=== PATIENT | female | born 1960 | race Caucasian/White ===

== ENCOUNTER → 2017-09-25 | Outpatient (CLI) | payer MEDICARE ==
[~2017-09-25] MED LIST: ACET325; ALBU90OI INH; ATOR10 PO; ATORVASTATIN CA10 MG PO; CALCIUM PO; CARV3.125; CEFP200 PO; CHOL10002 PO; CIPR500 PO; DOCU100 PO; ERGO400 PO; FURO40 PO; GABA400 PO; GABA800 PO; HYDMOR2 PO; LIDOCAINE HCL30 ML TOP; LIDOCAINE-PRIL1 EACH TOP; LISI5 PO; MOMENI; NITR.6SL SL; OXYACE5T PO; OXYC5 PO; POTCHL10ER PO; PRED20 PO; PROM25 PO; Prilosec20 MG; Silvadene20 GM TOP; VISCOUS LIDOCAINE PO; WARF1 PO; WARF2.5 PO; WARF5; WARF5 PO; WARF7.5 PO; [UNRECOGNIZED DRUG - REMARK]
== END ==
LOC: LAB 11:58 → LAB SHORT 11:58 → LAB FUT 09-24 13:30
PROVIDERS: Internal Medicine Nephrology
DX: N18.3 Chronic kidney disease, stage 3 (moderate) (principal); D63.1 Anemia in chronic kidney disease; E55.9 Vitamin D deficiency, unspecified; E79.0 Hyperuricemia without signs of inflammatory arthritis and tophaceous disease; R76.9 Abnormal immunological finding in serum, unspecified; R94.5 Abnormal results of liver function studies
CPT/HCPCS: 84166; 86335

== ENCOUNTER 2017-12-31 07:56 | Day surgery (SDC) | payer MEDICARE ==
[~2017-12-31] VITALS: Ht 165.1 cm; Wt 95.2 kg
[~2017-12-31 07:56] MED LIST changes: -ATOR10 PO; -ATORVASTATIN CA10 MG PO; -CALCIUM PO; -CHOL10002 PO; -ERGO400 PO; -FURO40 PO; -GABA400 PO; -GABA800 PO; -LIDOCAINE HCL30 ML TOP; -LIDOCAINE-PRIL1 EACH TOP; +LISI5; -LISI5 PO; -OXYC5 PO; -POTCHL10ER PO; -Silvadene20 GM TOP; -VISCOUS LIDOCAINE PO; -WARF2.5 PO; -WARF5 PO
[2017-12-31] MEDS ORDERED: GABA400 PO (08:24)
[2017-12-31] MEDS ORDERED: ATOR10 PO (08:24)
[2017-12-31] MEDS ORDERED: POTCHL10ER PO (08:25)
[2017-12-31] MEDS ORDERED: FURO40 PO (08:25)
== END 2017-12-31 10:07 | disposition home or self-care (01) ==
LOC: ORSCSDS 07:56
PROVIDERS: Surgery
PROC: 0DBP8ZX Excision of Rectum, Via Natural or Artificial Opening Endoscopic, Diagnostic (ICD-10-PCS; principal; 2017-12-31 09:00)
DX: Z12.11 Encounter for screening for malignant neoplasm of colon (principal); C21.0 Malignant neoplasm of anus, unspecified; K64.8 Other hemorrhoids; J44.9 Chronic obstructive pulmonary disease, unspecified; Z85.71 Personal history of Hodgkin lymphoma; Z79.01 Long term (current) use of anticoagulants; Z79.899 Other long term (current) drug therapy; E66.01 Morbid (severe) obesity due to excess calories; Z68.36 Body mass index [BMI] 36.0-36.9, adult
CPT/HCPCS: 88305; J7120

== ENCOUNTER 2018-01-16 06:10 | Day surgery (SDC) | payer MEDICARE ==
[~2018-01-16] VITALS: Ht 165.1 cm; Wt 95.7 kg
[~2018-01-16 06:10] MED LIST changes: +ATOR10 PO; +FURO40 PO; +GABA400 PO; +POTCHL10ER PO
== END 2018-01-16 08:35 | disposition home or self-care (01) ==
LOC: ORSCSDS 06:10
PROVIDERS: Orthopaedic Surgery
PROC: 01N50ZZ Release Median Nerve, Open Approach (ICD-10-PCS; principal; 2018-01-16 07:30)
DX: G56.01 Carpal tunnel syndrome, right upper limb (principal); N18.3 Chronic kidney disease, stage 3 (moderate); J44.9 Chronic obstructive pulmonary disease, unspecified; Z85.71 Personal history of Hodgkin lymphoma; E66.9 Obesity, unspecified; Z68.37 Body mass index [BMI] 37.0-37.9, adult; Z79.01 Long term (current) use of anticoagulants; Z79.899 Other long term (current) drug therapy
CPT/HCPCS: J2250

== ENCOUNTER 2018-02-03 07:15 | Day surgery (SDC) | payer MEDICARE ==
[~2018-02-03 07:15] MED LIST changes: +ERGO400 PO; -LISI5; +LISI5 PO
[2018-02-03] MEDS ORDERED: CALCIUM PO (13:40)
[2018-02-09] MEDS ORDERED: WARF5 PO (08:02)
[2018-02-09] MEDS ORDERED: WARF2.5 PO (08:03)
== END 2018-02-03 13:46 | disposition home or self-care (01) ==
LOC: ATC 07:15
DX: C21.0 Malignant neoplasm of anus, unspecified (principal); Z85.71 Personal history of Hodgkin lymphoma; Z86.711 Personal history of pulmonary embolism; Z79.01 Long term (current) use of anticoagulants; E66.9 Obesity, unspecified
CPT/HCPCS: 96372; J1650

== ENCOUNTER 2018-02-04 00:26 | Day surgery (SDC) | payer MEDICARE ==
[~2018-02-04 00:26] MED LIST changes: +CALCIUM PO
[2018-02-09] MEDS ORDERED: WARF5 PO (08:02)
[2018-02-09] MEDS ORDERED: WARF2.5 PO (08:03)
== END 2018-02-04 13:33 | disposition home or self-care (01) ==
LOC: ATC 00:26
DX: C21.0 Malignant neoplasm of anus, unspecified (principal); Z85.71 Personal history of Hodgkin lymphoma
CPT/HCPCS: 96372; J1650

== ENCOUNTER 2018-02-05 00:26 | Day surgery (SDC) | payer MEDICARE ==
[2018-02-09] MEDS ORDERED: WARF5 PO (08:02)
[2018-02-09] MEDS ORDERED: WARF2.5 PO (08:03)
== END 2018-02-05 13:56 | disposition home or self-care (01) ==
LOC: ATC 00:26
DX: C21.0 Malignant neoplasm of anus, unspecified (principal)
CPT/HCPCS: 96372; J1650

== ENCOUNTER 2018-02-07 08:59 | Day surgery (SDC) | payer MEDICARE ==
[2018-02-09] MEDS ORDERED: WARF5 PO (08:02)
[2018-02-09] MEDS ORDERED: WARF2.5 PO (08:03)
== END 2018-02-07 10:17 | disposition home or self-care (01) ==
LOC: ATC 08:59
DX: C21.0 Malignant neoplasm of anus, unspecified (principal)
CPT/HCPCS: 96372; J1650

== ENCOUNTER 2018-02-08 00:03 | Day surgery (SDC) | payer MEDICARE ==
[2018-02-09] MEDS ORDERED: WARF5 PO (08:02)
[2018-02-09] MEDS ORDERED: WARF2.5 PO (08:03)
== END 2018-02-08 10:15 | disposition home or self-care (01) ==
LOC: ATC 00:03
DX: C21.0 Malignant neoplasm of anus, unspecified (principal); Z85.71 Personal history of Hodgkin lymphoma; E66.9 Obesity, unspecified; Z86.711 Personal history of pulmonary embolism
CPT/HCPCS: 36416; 85610; 96372; J1650

== ENCOUNTER 2018-02-09 09:55 | Day surgery (SDC) | payer MEDICARE ==
[~2018-02-09 09:55] MED LIST changes: +WARF2.5 PO; +WARF5 PO
[2018-02-10] MEDS ORDERED: OXYC5 PO (10:13)
== END 2018-02-09 10:10 | disposition home or self-care (01) ==
LOC: ATC 09:55
DX: C21.0 Malignant neoplasm of anus, unspecified (principal); Z85.71 Personal history of Hodgkin lymphoma; Z86.711 Personal history of pulmonary embolism
CPT/HCPCS: 36416; 85610; 96372; J1650

== ENCOUNTER 2018-02-10 00:37 | Day surgery (SDC) | payer MEDICARE ==
[2018-02-10] MEDS ORDERED: OXYC5 PO (10:13)
== END 2018-02-10 10:10 | disposition home or self-care (01) ==
LOC: ATC 00:37
DX: C21.0 Malignant neoplasm of anus, unspecified (principal); Z85.71 Personal history of Hodgkin lymphoma
CPT/HCPCS: 36416; 85610; 96372; J1650

== ENCOUNTER 2018-02-11 00:47 | Day surgery (SDC) | payer MEDICARE ==
[~2018-02-11 00:47] MED LIST changes: +OXYC5 PO
== END 2018-02-11 10:18 | disposition home or self-care (01) ==
LOC: ATC 00:47
DX: C21.0 Malignant neoplasm of anus, unspecified (principal); Z85.71 Personal history of Hodgkin lymphoma
CPT/HCPCS: 36416; 85610; 96372; J1650

== ENCOUNTER 2018-02-12 00:54 | Day surgery (SDC) | payer MEDICARE | END 2018-02-12 10:39 | disposition home or self-care (01) | LOC: ATC 00:54 | DX: C21.0 Malignant neoplasm of anus, unspecified (principal); Z85.71 Personal history of Hodgkin lymphoma | CPT/HCPCS: 36416; 85610; 96372; J1650 ==

== ENCOUNTER 2018-02-13 01:03 | Day surgery (SDC) | payer MEDICARE | END 2018-02-13 10:15 | disposition home or self-care (01) | LOC: ATC 01:03 | DX: C21.1 Malignant neoplasm of anal canal (principal); Z85.71 Personal history of Hodgkin lymphoma | CPT/HCPCS: 36416; 85610; 96372; J1650 ==

== ENCOUNTER 2018-02-14 00:05 | Day surgery (SDC) | payer MEDICARE | END 2018-02-14 10:45 | disposition home or self-care (01) | LOC: ATC 00:05 | DX: C21.1 Malignant neoplasm of anal canal (principal); Z86.711 Personal history of pulmonary embolism; Z79.01 Long term (current) use of anticoagulants | CPT/HCPCS: 36416; 85610; 96372; J1650 ==

== ENCOUNTER 2018-02-15 09:56 | Day surgery (SDC) | payer MEDICARE | END 2018-02-15 10:09 | disposition home or self-care (01) | LOC: ATC 09:56 | DX: C21.1 Malignant neoplasm of anal canal (principal); Z85.71 Personal history of Hodgkin lymphoma | CPT/HCPCS: 36416; 85610; 99211; J1650 ==

== ENCOUNTER 2018-02-17 00:29 | Day surgery (SDC) | payer MEDICARE | END 2018-02-17 23:18 | disposition home or self-care (01) | LOC: ATC 00:29 | DX: C21.1 Malignant neoplasm of anal canal (principal); Z85.71 Personal history of Hodgkin lymphoma; Z86.711 Personal history of pulmonary embolism; Z79.01 Long term (current) use of anticoagulants ==

== ENCOUNTER 2018-03-07 08:00 | Day surgery (SDC) | payer MEDICARE ==
[~2018-03-07] VITALS: Ht 162.6 cm; Wt 95.7 kg
[~2018-03-07 08:00] MED LIST changes: +GABA800 PO
== END 2018-03-07 12:30 | disposition home or self-care (01) ==
LOC: ORSCMMR 08:00 → ORD 09:45 → ORSCMMR 12:30
PROVIDERS: Surgery
PROC: B5181ZA Fluoroscopy of Superior Vena Cava using Low Osmolar Contrast, Guidance (ICD-10-PCS; principal; 2018-03-07 09:45)
PROC: 02HV33Z Insertion of Infusion Device into Superior Vena Cava, Percutaneous Approach (ICD-10-PCS; principal; 2018-03-07 09:45)
DX: C44.520 Squamous cell carcinoma of anal skin (principal); I10 Essential (primary) hypertension; E66.01 Morbid (severe) obesity due to excess calories; Z68.36 Body mass index [BMI] 36.0-36.9, adult; Z79.01 Long term (current) use of anticoagulants; Z79.899 Other long term (current) drug therapy
CPT/HCPCS: 77001; C1788; J0690; J1642; J2001; J2250; J3010; J7120

== ENCOUNTER 2018-04-19 00:05 | Day surgery (SDC) | payer MEDICARE | END 2018-04-19 11:25 | disposition home or self-care (01) | LOC: ATC 00:05 | DX: C44.520 Squamous cell carcinoma of anal skin (principal); C81.90 Hodgkin lymphoma, unspecified, unspecified site; Z79.01 Long term (current) use of anticoagulants | CPT/HCPCS: J1642; J7030 ==

== ENCOUNTER 2018-04-26 00:40 | Day surgery (SDC) | payer MEDICARE | END 2018-04-26 12:02 | disposition home or self-care (01) | LOC: ATC 00:40 | DX: C21.8 Malignant neoplasm of overlapping sites of rectum, anus and anal canal (principal); Z45.2 Encounter for adjustment and management of vascular access device; C81.99 Hodgkin lymphoma, unspecified, extranodal and solid organ sites; D70.1 Agranulocytosis secondary to cancer chemotherapy; T45.1X5A Adverse effect of antineoplastic and immunosuppressive drugs, initial encounter; K12.1 Other forms of stomatitis; Z79.899 Other long term (current) drug therapy | CPT/HCPCS: 96360; J1642; J7030 ==

== ENCOUNTER 2018-04-27 09:49 | Day surgery (SDC) | payer MEDICARE | END 2018-04-27 11:12 | disposition home or self-care (01) | LOC: ATC 09:49 | DX: C81.99 Hodgkin lymphoma, unspecified, extranodal and solid organ sites (principal); C21.8 Malignant neoplasm of overlapping sites of rectum, anus and anal canal; D70.1 Agranulocytosis secondary to cancer chemotherapy; T45.1X5A Adverse effect of antineoplastic and immunosuppressive drugs, initial encounter; K12.1 Other forms of stomatitis; Z79.899 Other long term (current) drug therapy | CPT/HCPCS: 96360; J1642; J7030 ==

== ENCOUNTER 2018-05-01 13:54 | Emergency (ER) | payer MEDICARE ==
[~2018-05-01] VITALS: Ht 165.1 cm; Wt 89.8 kg
== END 2018-05-01 15:02 | disposition home or self-care (01) ==
LOC: ER 13:54
DX: R79.1 Abnormal coagulation profile (principal); I10 Essential (primary) hypertension; Z91.048 Other nonmedicinal substance allergy status; Z88.5 Allergy status to narcotic agent; Z88.8 Allergy status to other drugs, medicaments and biological substances; Z79.899 Other long term (current) drug therapy; Z79.01 Long term (current) use of anticoagulants
CPT/HCPCS: 99282

== ENCOUNTER 2018-05-03 10:52 | Day surgery (SDC) | payer MEDICARE | END 2018-05-03 12:35 | disposition home or self-care (01) | LOC: ATC 10:52 | DX: C44.520 Squamous cell carcinoma of anal skin (principal); C81.90 Hodgkin lymphoma, unspecified, unspecified site; D70.1 Agranulocytosis secondary to cancer chemotherapy; J44.9 Chronic obstructive pulmonary disease, unspecified; Z79.899 Other long term (current) drug therapy | CPT/HCPCS: 96360; J1642; J7030 ==

== ENCOUNTER 2018-05-04 10:05 | Day surgery (SDC) | payer MEDICARE | END 2018-05-04 11:51 | disposition home or self-care (01) | LOC: ATC 10:05 | DX: C44.520 Squamous cell carcinoma of anal skin (principal); C81.90 Hodgkin lymphoma, unspecified, unspecified site; D70.1 Agranulocytosis secondary to cancer chemotherapy | CPT/HCPCS: 96360; J1642; J7030 ==

== ENCOUNTER 2018-05-06 11:11 | Emergency (ER) | payer MEDICARE ==
[~2018-05-06] VITALS: Ht 165.1 cm; Wt 89.8 kg
[2018-05-06 12:14] LABS: International Normalized Ratio 2.17; Prothrombin Time Results 21.4 Sec (9.7-11.5)
[2018-05-06 12:27] LABS: Albumin/Globulin Ratio 0.9 (0.8-1.8); Bilirubin, Total 0.5 mg/dL (0.1-1.0); Bun/Creatinine Ratio 11.4 (12.0-20.0); Creatinine, Blood 1.4 mg/dL (0.40-1.00); Globulin, Blood 3.2 g/dL (2.2-4.0); Potassium, Blood 3.7 mmol/L (3.5-5.5); Total Protein, Blood 6.2 g/dL (6.4-8.2)
[2018-05-06 12:59] LABS: BASOPHILS ABSOLUTE AUTO 0.01 K/mm3 (0.00-0.23); BASOPHILS PERCENT AUTO 1 % (0-2); Hematocrit 26.5 % (33.0-51.0); LYMPHOCYTES ABSOLUTE AUTO 0.22 K/mm3 (0.84-5.20); LYMPHOCYTES PERCENT AUTO 12 % (21-46); MONOCYTES ABSOLUTE AUTO 0.15 K/mm3 (0.16-1.47); MONOCYTES PERCENT AUTO 8 % (4-13); Mean Corpuscular HGB 33.5 pg (26.0-34.0); RDW Coefficient Variation 14.6 % (11.7-14.2); RDW Standard Deviation 51.4 fL (35.1-46.3); Red Blood Cell Count 2.69 M/mm3 (3.80-5.20); White Blood Cell Count 1.81 K/mm3 (4.00-11.30)
[2018-05-06 13:05] LABS: EOSINOPHILS ABSOLUTE AUTO 0.01 K/mm3 (0.00-0.68); EOSINOPHILS PERCENT AUTO 1 % (0-6); IMMATURE GRAN ABSOLUTE AUTO 0.03 K/mm3 (0.00-0.10); IMMATURE GRAN PERCENT AUTO 2 % (0-1); Mean Corpuscular Volume 99 fL (80-100); NEUTROPHILS ABSOLUTE AUTO 1.39 K/mm3 (1.96-9.15); NEUTROPHILS PERCENT AUTO 77 % (41-73)
[2018-05-06 13:08] LABS: Platelet Count 8 K/mm3 (150-400)
[2018-05-06 13:45] LABS: BAND PERCENT MAN 8 % (0-8); BASOPHILS PERCENT MAN 0 % (0-2); EOSINOPHILS PERCENT MAN 0 % (0-6); LYMPHOCYTES ABSOLUTE MAN 0.07 K/mm3 (0.84-5.20); LYMPHOCYTES PERCENT MAN 4 % (21-46); MONOCYTES PERCENT MAN 6 % (4-13); NEUTROPHILS ABSOLUTE MAN 1.62 K/mm3 (1.96-9.15); SEG NEUTROPHILS PERCENT MAN 82 % (41-73); TOTAL CELLS COUNTED 50
== END 2018-05-06 18:03 | disposition home or self-care (01) ==
LOC: ER 11:11
PROVIDERS: Physician Assistant
DX: T21.25XA Burn of second degree of buttock, initial encounter (principal); T31.0 Burns involving less than 10% of body surface; D61.818 Other pancytopenia; C21.0 Malignant neoplasm of anus, unspecified; Y84.2 Radiological procedure and radiotherapy as the cause of abnormal reaction of the patient, or of later complication, without mention of misadventure at the time of the procedure; Z91.048 Other nonmedicinal substance allergy status; Z88.5 Allergy status to narcotic agent; Z88.8 Allergy status to other drugs, medicaments and biological substances; Z79.899 Other long term (current) drug therapy; Z79.01 Long term (current) use of anticoagulants
CPT/HCPCS: 36415; 36430; 80053; 85025; 85610; 86900; 86901; 99283-25; J7030; P9035

== ENCOUNTER 2018-12-02 09:39 | Day surgery (SDC) | payer MEDICARE ==
[~2018-12-02] VITALS: Ht 165.1 cm; Wt 88.5 kg
[~2018-12-02 09:39] MED LIST changes: +ATORVASTATIN CA10 MG PO; +CHOL10002 PO; +LIDOCAINE HCL30 ML TOP; +LIDOCAINE-PRIL1 EACH TOP; +Silvadene20 GM TOP; +VISCOUS LIDOCAINE PO
[2018-12-02] MEDS ORDERED: Proctosol HC30 GM (10:25)
--- NOTE | 2018-12-02 10:45 | NUR ---
12/02/18 1045 Ara Morgan PT ARRIVES TO [facility] WITH MEDIPORT THAT HAD ACCESS PREPARED AT THE [facility], SITE WAS THEN FLUSHED AND ACCESSED BY [facility].FLL AT 1040.
--- NOTE | 2018-12-02 12:25 | NUR ---
12/02/18 Nichol Wu PT CAME TO [facility] WITH AN ACCESSED [facility]EDURE. AFTER FLEX SIG WAS COMPLETED THE PORT WAS DE-ACCESSED IN STEP DOWN UNIT AFTER BEING FLUSHED WITH 10CC'S NORMAL SALINE AND 300 UNITS OF HEPARIN. SITE WIPED AND BANDAID PLACED ON IT. PT TOLERATED THE PROCEDURE WITHOUT INCIDENT. DE-ACCESSED BY JOSE MARTIN PEREZ.
== END 2018-12-02 12:10 | disposition home or self-care (01) ==
LOC: ORSCSDS 09:39
PROVIDERS: Surgery
PROC: 0DJD8ZZ Inspection of Lower Intestinal Tract, Via Natural or Artificial Opening Endoscopic (ICD-10-PCS; principal; 2018-12-02 10:45)
DX: Z85.048 Personal history of other malignant neoplasm of rectum, rectosigmoid junction, and anus (principal); J44.9 Chronic obstructive pulmonary disease, unspecified; K21.9 Gastro-esophageal reflux disease without esophagitis; E66.9 Obesity, unspecified; Z68.33 Body mass index [BMI] 33.0-33.9, adult; Z79.01 Long term (current) use of anticoagulants; Z79.899 Other long term (current) drug therapy
CPT/HCPCS: J1642; J2704; J7120

== ENCOUNTER 2019-07-10 08:36 | Day surgery (SDC) | payer MEDICARE ==
[~2019-07-10] VITALS: Ht 162.6 cm; Wt 93.1 kg
[~2019-07-10 08:36] MED LIST changes: +Proctosol HC30 GM
== END 2019-07-10 10:15 | disposition home or self-care (01) ==
LOC: ORSCSDS 08:36
PROVIDERS: Surgery
PROC: 0DJD8ZZ Inspection of Lower Intestinal Tract, Via Natural or Artificial Opening Endoscopic (ICD-10-PCS; principal; 2019-07-10 09:45)
DX: K62.5 Hemorrhage of anus and rectum (principal); Z85.048 Personal history of other malignant neoplasm of rectum, rectosigmoid junction, and anus; J44.9 Chronic obstructive pulmonary disease, unspecified; Z79.01 Long term (current) use of anticoagulants; Z79.899 Other long term (current) drug therapy
CPT/HCPCS: J2704; J7120

== ENCOUNTER 2019-11-08 14:30 | Emergency (ER) | payer MEDICARE, OTHER ==
[~2019-11-08] VITALS: Ht 165.1 cm; Wt 90.7 kg
[~2019-11-08 14:30] MED LIST changes: -ATORVASTATIN CA10 MG PO; -AZIT250 PO; -DULCOLAX STOOL100 MG PO; -VITAMIN D325 MCG PO
[2019-11-08] MEDS ORDERED: ATORVASTATIN CA10 MG PO (16:27)
[2019-11-08] MEDS ORDERED: LISI5 PO (16:28)
[2019-11-08] MEDS ORDERED: FURO40 PO (16:29)
[2019-11-08] MEDS ORDERED: WARF5 PO (16:29)
[2019-11-08] MEDS ORDERED: POTCHL10ER PO (16:29)
[2019-11-08] MEDS ORDERED: VITAMIN D325 MCG PO (16:41)
[2019-11-08] MEDS ORDERED: DULCOLAX STOOL100 MG PO (16:41)
[2019-11-08 17:23] LABS: Adenovirus Not Detected (NOT DETECT); Coronavirus 229E Not Detected (NOT DETECT); Coronavirus HKU1 Not Detected (NOT DETECT); Coronavirus NL63 Not Detected (NOT DETECT)
[2019-11-08 17:24] LABS: Bordetella pertussis Not Detected (NOT DETECT); Chlamydophila pneumoniae Not Detected (NOT DETECT); Coronavirus OC43 Not Detected (NOT DETECT); Human Metapneumovirus Not Detected (NOT DETECT); Human Rhinovirus/Enterovirus Not Detected (NOT DETECT); Influenza A/2009-H1 Not Detected (NOT DETECT); Influenza A/H1 Not Detected (NOT DETECT); Influenza A/H3 Not Detected (NOT DETECT); Influenza B Not Detected (NOT DETECT); Mycoplasma pneumoniae Not Detected (NOT DETECT); Parainfluenza Virus 1 Not Detected (NOT DETECT); Parainfluenza Virus 2 Not Detected (NOT DETECT); Parainfluenza Virus 3 Not Detected (NOT DETECT); Parainfluenza Virus 4 Not Detected (NOT DETECT); Respiratory Syncytial Virus Not Detected (NOT DETECT)
[2019-11-08] MEDS ORDERED: AZIT250 PO (17:34)
== END 2019-11-08 17:45 | disposition home or self-care (01) ==
LOC: ER 14:30
PROVIDERS: Emergency Medicine
DX: J20.9 Acute bronchitis, unspecified (principal); K92.2 Gastrointestinal hemorrhage, unspecified; D68.8 Other specified coagulation defects; K21.9 Gastro-esophageal reflux disease without esophagitis; Z85.71 Personal history of Hodgkin lymphoma; Z86.718 Personal history of other venous thrombosis and embolism; Z86.711 Personal history of pulmonary embolism
CPT/HCPCS: 0099U; 71046; 86850; 86900; 86901; 96365; 99284-25; J3430

== ENCOUNTER → 2019-11-08 | Outpatient (CLI) | payer MEDICARE, OTHER ==
[~2019-11-08] MED LIST changes: +AZIT250 PO; -CHOL10002 PO; +DULCOLAX STOOL100 MG PO; +VITAMIN D325 MCG PO
[2019-11-08 12:51] LABS: BASOPHILS ABSOLUTE AUTO 0.02 K/mm3 (0.00-0.23); BASOPHILS PERCENT AUTO 0 % (0-2); EOSINOPHILS ABSOLUTE AUTO 0.24 K/mm3 (0.00-0.68); EOSINOPHILS PERCENT AUTO 3 % (0-6); Hematocrit 37.6 % (33.0-51.0); Hemoglobin 12.3 g/dL (11.5-16.0); IMMATURE GRAN ABSOLUTE AUTO 0.03 K/mm3 (0.00-0.10); IMMATURE GRAN PERCENT AUTO 0 % (0-1); LYMPHOCYTES ABSOLUTE AUTO 1.45 K/mm3 (0.84-5.20); LYMPHOCYTES PERCENT AUTO 17 % (21-46); MONOCYTES ABSOLUTE AUTO 0.53 K/mm3 (0.16-1.47); MONOCYTES PERCENT AUTO 6 % (4-13); Mean Corpuscular HGB 33.5 pg (26.0-34.0); Mean Corpuscular HGB Conc 32.7 g/dL (31.5-36.5); Mean Corpuscular Volume 103 fL (80-100); Mean Platelet Volume 9.5 fL (9.1-12.4); NEUTROPHILS ABSOLUTE AUTO 6.39 K/mm3 (1.96-9.15); NEUTROPHILS PERCENT AUTO 74 % (41-73); NRBC ABSOLUTE 0.02 K/mm3 (0.00-0.02); NRBC Auto 0.2 /100 WBC (0.0-0.2); Platelet Count 263 K/mm3 (150-400); RDW Coefficient Variation 12.9 % (11.7-14.2); RDW Standard Deviation 47.9 fL (35.1-46.3); Red Blood Cell Count 3.67 M/mm3 (3.80-5.20); White Blood Cell Count 8.66 K/mm3 (4.00-11.30)
[2019-11-08 13:00] LABS: Albumin, Blood 3.8 g/dL (3.4-5.0); Albumin/Globulin Ratio 0.9 (0.8-1.8); Bilirubin, Total 0.3 mg/dL (0.1-1.0); Bun/Creatinine Ratio 10.6 (12.0-20.0); Creatinine, Blood 1.7 mg/dL (0.40-1.00); Globulin, Blood 4.2 g/dL (2.2-4.0); Potassium, Blood 4.2 mmol/L (3.5-5.5)
[2019-11-08 13:35] LABS: Prothrombin Time Results 75.9 Sec (9.7-11.5)
[2019-11-08 13:47] LABS: International Normalized Ratio 7.98
== END | disposition home or self-care (01) ==
LOC: LAB SHORT 12:44 → LAB EV 12:44
PROVIDERS: Physician Assistant
DX: Z79.01 Long term (current) use of anticoagulants (principal); Z51.81 Encounter for therapeutic drug level monitoring; R19.7 Diarrhea, unspecified; J02.9 Acute pharyngitis, unspecified
CPT/HCPCS: 80053; 85025; 85610; 85730; 87081

== ENCOUNTER → 2020-08-16 | Outpatient (CLI) | payer MEDICARE, SELFPAY ==
[~2020-08-16] MED LIST changes: +ATORVASTATIN CA10 MG PO; +AZIT250 PO; +DULCOLAX STOOL100 MG PO; +VITAMIN D325 MCG PO
== END | disposition home or self-care (01) ==
LOC: LAB SHORT 16:47
DX: L08.89 Other specified local infections of the skin and subcutaneous tissue (principal)
CPT/HCPCS: 88305

== ENCOUNTER 2020-09-07 10:06 | Day surgery (SDC) | payer MEDICARE ==
[~2020-09-07] VITALS: Ht 162.6 cm; Wt 93.4 kg
--- NOTE | 2020-09-07 13:10 | NUR ---
09/07/20 1310 Lucero Wood S LATE ENTRY PT. VERBALIZES WHEN SHE LAYS FLAT THAT SHE LOSES HER VOICE SO NOT TO BE CONCERNED WHEN SHE WAKES UP & CAN'T SPEAK.
--- NOTE | 2020-09-07 13:11 | NUR ---
09/07/20 1311 Lucero Wood LIDOCAINE JELLY APPLIED BY DR. AGEE TO RECTAL AREA POST FLEX SIG.
--- NOTE | 2020-09-07 13:17 | NUR ---
09/07/20 1317 IsraelLucero S PT. VERBALIZES FEELING DIZZY WHEN SITTING UP TO GET DRESSED. PT. WOBBLY [facility] ASSISTED PT. TO GET DRESSED. ALSO OBSERVED LIGHT TINGED BLOOD STAINING ON SHEET. PT. INSTRUCTED THAT LIDOCAINE JELLY WAS APPLIED TO RECTAL AREA AFTER HER PROCEDURE. WHEN PT. WOKE UP PT. WAS ONLY ABLE TO WHISPER SHE HAD INFORMED [facility] THAT SHE WOULDN'T BE ABLE TO SPEAK. PT. SLEEPS AT HOME WITH HER HEAD ELEVATED. PT. DENIED ANY PAIN EXCEPT TO HER RECTAL AREA WITH MOVEMENT. LIGHT BLOOD TINGED STAINING ON SHEET WAS JUST SMALL AMT. PT.'S BOYFRIEND WAS NOTIFIED OF PT.'S DISCHARGE INSTRUCTIONS & THAT AN RX WAS IN HER ENVELOPE FOR SILVADENE TOPICAL CREAM, THIS WAS ALL WITH THE PERMISSION OF THE PT. PT. WANTED HER BOYFRIEND RACHEL TO KNOW.
[2021-02-28] MEDS ORDERED: ELIQUIS2.5 MG PO (08:06)
[2021-02-28] MEDS ORDERED: CYAN500 PO (08:06)
[2021-02-28] MEDS ORDERED: CALCIUM CIT 311 EACH PO (08:06)
[2021-02-28] MEDS ORDERED: NAPR500 PO (08:06)
[2021-02-28] MEDS ORDERED: SILVADENE20 GM (08:07)
== END 2020-09-07 13:00 | disposition home or self-care (01) ==
LOC: ORSCSDS 10:06
PROVIDERS: Surgery
PROC: 0DJD8ZZ Inspection of Lower Intestinal Tract, Via Natural or Artificial Opening Endoscopic (ICD-10-PCS; principal; 2020-09-07 11:15)
DX: Z85.048 Personal history of other malignant neoplasm of rectum, rectosigmoid junction, and anus (principal); J44.9 Chronic obstructive pulmonary disease, unspecified; Z79.01 Long term (current) use of anticoagulants; Z79.899 Other long term (current) drug therapy
CPT/HCPCS: A9270; J2704; J7120

== ENCOUNTER 2021-03-07 13:40 | Day surgery (SDC) | payer MEDICARE ==
[~2021-03-07] VITALS: Ht 165.1 cm; Wt 93.1 kg
[~2021-03-07 13:40] MED LIST changes: +CALCIUM CIT 311 EACH PO; +CYAN500 PO; +ELIQUIS2.5 MG PO; +NAPR500 PO; +SILVADENE20 GM
== END 2021-03-07 15:10 | disposition home or self-care (01) ==
LOC: ORSCSDS 13:40
PROVIDERS: Surgery
PROC: 0DJD8ZZ Inspection of Lower Intestinal Tract, Via Natural or Artificial Opening Endoscopic (ICD-10-PCS; principal; 2021-03-07 15:00)
DX: Z85.89 Personal history of malignant neoplasm of other organs and systems (principal); K62.7 Radiation proctitis; J44.9 Chronic obstructive pulmonary disease, unspecified; I50.9 Heart failure, unspecified; Z86.718 Personal history of other venous thrombosis and embolism; Z86.711 Personal history of pulmonary embolism; Z85.71 Personal history of Hodgkin lymphoma; Z79.01 Long term (current) use of anticoagulants; Z79.899 Other long term (current) drug therapy
CPT/HCPCS: A9270; J2704; J7120

== ENCOUNTER 2021-08-10 11:34 | Day surgery (SDC) | payer MEDICARE ==
[~2021-08-10] VITALS: Ht 165.1 cm; Wt 93.1 kg
--- NOTE | 2021-08-10 11:26 | NUR ---
08/10/21 1126 Marce Gleason 1 TRY RIGHT HAND BLEW 2 TRY RIGHT WRIST BLEW
== END 2021-08-10 12:59 | disposition home or self-care (01) ==
LOC: ORSCSDS 11:34
PROVIDERS: Student in an Organized Health Care Education/Training Program
PROC: 0W3P8ZZ Control Bleeding in Gastrointestinal Tract, Via Natural or Artificial Opening Endoscopic (ICD-10-PCS; principal; 2021-08-10 12:00)
DX: K62.7 Radiation proctitis (principal); J44.9 Chronic obstructive pulmonary disease, unspecified; K21.9 Gastro-esophageal reflux disease without esophagitis; K64.4 Residual hemorrhoidal skin tags; E66.9 Obesity, unspecified; Z68.34 Body mass index [BMI] 34.0-34.9, adult; Z79.01 Long term (current) use of anticoagulants; Z79.899 Other long term (current) drug therapy
CPT/HCPCS: A9270; J0461; J2405; J2704; J7120

== ENCOUNTER 2022-08-15 14:27 | Emergency (ER) | payer MEDICARE ==
[~2022-08-15] VITALS: Ht 165.1 cm; Wt 93.0 kg
[2022-08-15] MEDS ORDERED: CEPH500 PO (15:55)
== END 2022-08-15 16:13 | disposition home or self-care (01) ==
LOC: ER 14:27
DX: S62.664B Nondisplaced fracture of distal phalanx of right ring finger, initial encounter for open fracture (principal); W23.0XXA Caught, crushed, jammed, or pinched between moving objects, initial encounter; Z88.5 Allergy status to narcotic agent; Z88.8 Allergy status to other drugs, medicaments and biological substances; Z91.048 Other nonmedicinal substance allergy status; Z79.899 Other long term (current) drug therapy; Z79.01 Long term (current) use of anticoagulants
CPT/HCPCS: 73140; 90714

== ENCOUNTER 2022-09-27 11:59 | Day surgery (SDC) | payer MEDICARE ==
[~2022-09-27] VITALS: Ht 165.1 cm; Wt 96.5 kg
[~2022-09-27 11:59] MED LIST changes: +CEPH500 PO
[2022-09-27] MEDS ORDERED: LISI5 (12:14)
[2022-09-27] MEDS ORDERED: SILVADENE20 G1 (12:15)
[2022-09-27] MEDS ORDERED: BISA10S (12:15)
[2022-09-27] MEDS ORDERED: CLOBETASOL EMOL15 G1 (12:15)
== END 2022-09-27 13:32 | disposition home or self-care (01) ==
LOC: ORSCSDS 11:59
PROVIDERS: Surgery
PROC: 0DJD8ZZ Inspection of Lower Intestinal Tract, Via Natural or Artificial Opening Endoscopic (ICD-10-PCS; principal; 2022-09-27 13:00)
DX: K62.5 Hemorrhage of anus and rectum (principal); K62.89 Other specified diseases of anus and rectum; Z85.048 Personal history of other malignant neoplasm of rectum, rectosigmoid junction, and anus; K62.4 Stenosis of anus and rectum; J44.9 Chronic obstructive pulmonary disease, unspecified; K21.9 Gastro-esophageal reflux disease without esophagitis; Z86.711 Personal history of pulmonary embolism; Z79.01 Long term (current) use of anticoagulants; Z79.899 Other long term (current) drug therapy
CPT/HCPCS: J2704; J7120

== ENCOUNTER → 2022-10-26 | Outpatient (CLI) | payer MEDICARE ==
[~2022-10-26] MED LIST changes: +BISA10S; +CLOBETASOL EMOL15 G1; +LISI5; +SILVADENE20 G1
[2022-10-26 19:45] LABS: IMMATURE RETIC FRACTION 14.5 % (2.3-16.0); RETIC HGB EQUIVALENT 37.9 pg (28.20-36.60); RETICULOCYTE ABSOLUTE 0.0692 M/mm3 (0.0200-0.1100); RETICULOCYTE COUNT PERCENT 2.03 % (0.50-2.50)
[2022-10-26 20:00] LABS: Percent Saturation 31.6 % (15.0-50.0)
== END | disposition home or self-care (01) ==
LOC: LAB SHORT 18:13
PROVIDERS: Student in an Organized Health Care Education/Training Program
DX: D50.8 Other iron deficiency anemias (principal); D53.9 Nutritional anemia, unspecified
CPT/HCPCS: 82607; 82728; 82746; 83540; 83550; 85045

== ENCOUNTER → 2023-02-04 | Outpatient (CLI) | payer MEDICARE ==
[2023-02-04 14:21] LABS: BASOPHILS ABSOLUTE AUTO 0.02 K/mm3 (0.00-0.23); BASOPHILS PERCENT AUTO 0 % (0-2); EOSINOPHILS ABSOLUTE AUTO 0.26 K/mm3 (0.00-0.68); EOSINOPHILS PERCENT AUTO 4 % (0-6); Hematocrit 36.4 % (33.0-51.0); Hemoglobin 11.8 g/dL (11.5-16.0); IMMATURE GRAN ABSOLUTE AUTO 0.01 K/mm3 (0.00-0.10); IMMATURE GRAN PERCENT AUTO 0 % (0-1); LYMPHOCYTES ABSOLUTE AUTO 2.07 K/mm3 (0.84-5.20); LYMPHOCYTES PERCENT AUTO 28 % (21-46); MONOCYTES ABSOLUTE AUTO 0.62 K/mm3 (0.16-1.47); MONOCYTES PERCENT AUTO 8 % (4-13); Mean Corpuscular HGB 33.2 pg (26.0-34.0); Mean Corpuscular HGB Conc 32.4 g/dL (31.5-36.5); Mean Corpuscular Volume 103 fL (80-100); Mean Platelet Volume 10.6 fL (9.1-12.4); NEUTROPHILS ABSOLUTE AUTO 4.38 K/mm3 (1.96-9.15); NEUTROPHILS PERCENT AUTO 60 % (41-73); Platelet Count 217 K/mm3 (150-400); RDW Standard Deviation 45.5 fL (35.1-46.3); Red Blood Cell Count 3.55 M/mm3 (3.80-5.20); White Blood Cell Count 7.36 K/mm3 (4.00-11.30)
[2023-02-04 14:36] LABS: Albumin, Blood 3.7 g/dL (3.4-5.0); Bilirubin, Total 0.5 mg/dL (0.1-1.0); Bun/Creatinine Ratio 18.3 (12.0-20.0); Creatinine, Blood 1.86 mg/dL (0.40-1.00); Free Thyroxine 0.99 ng/dL (0.70-1.60); Globulin, Blood 3.6 g/dL (2.2-4.0); Potassium, Blood 4.4 mmol/L (3.5-5.5); Thyroid Stimulating Hormone 2.5 uIU/mL (0.360-4.800); Total Protein, Blood 7.3 g/dL (6.4-8.2)
== END | disposition home or self-care (01) ==
LOC: LAB 12:55 → LAB SHORT 12:55
PROVIDERS: Student in an Organized Health Care Education/Training Program
DX: R68.83 Chills (without fever) (principal)
CPT/HCPCS: 80053; 84439; 84443; 85025

== ENCOUNTER 2023-03-26 08:42 | Day surgery (SDC) | payer MEDICARE ==
[~2023-03-26] VITALS: Ht 165.1 cm; Wt 91.9 kg
[2023-03-26 13:26] VITALS: BP 96/68
== END 2023-03-26 11:50 | disposition home or self-care (01) ==
LOC: ORSCSDS 08:42
PROVIDERS: Specialist
PROC: 0DB68ZX Excision of Stomach, Via Natural or Artificial Opening Endoscopic, Diagnostic (ICD-10-PCS; principal; 2023-03-26 10:00)
PROC: 0DB98ZX Excision of Duodenum, Via Natural or Artificial Opening Endoscopic, Diagnostic (ICD-10-PCS; principal; 2023-03-26 10:00)
PROC: 0DBE8ZX Excision of Large Intestine, Via Natural or Artificial Opening Endoscopic, Diagnostic (ICD-10-PCS; principal; 2023-03-26 10:00)
DX: K62.5 Hemorrhage of anus and rectum (principal); K62.7 Radiation proctitis; R11.0 Nausea; Z85.048 Personal history of other malignant neoplasm of rectum, rectosigmoid junction, and anus; Z85.038 Personal history of other malignant neoplasm of large intestine; J44.9 Chronic obstructive pulmonary disease, unspecified; Z86.718 Personal history of other venous thrombosis and embolism; Z86.711 Personal history of pulmonary embolism; Z79.01 Long term (current) use of anticoagulants; Z79.899 Other long term (current) drug therapy
CPT/HCPCS: 88305; 88342; A9270; J2405; J2704; J7120

== ENCOUNTER 2024-03-12 09:43 | Emergency (ER) | payer OTHER ==
[~2024-03-12] VITALS: Ht 162.6 cm; Wt 88.5 kg
[2024-03-12 10:00] VITALS: BP 138/93
[2024-03-12] MEDS ORDERED: Triamcinolone Inj Susp 40 MG / ML 1ML Vial IM ONE (10:05)
[2024-03-12] MEDS ORDERED: TRIDERM28.4 GM TOP (10:08)
== END 2024-03-12 10:38 | disposition home or self-care (01) ==
LOC: ER 09:43
DX: T78.40XA Allergy, unspecified, initial encounter (principal); K21.9 Gastro-esophageal reflux disease without esophagitis; Z79.899 Other long term (current) drug therapy; Z88.5 Allergy status to narcotic agent; Z91.048 Other nonmedicinal substance allergy status
CPT/HCPCS: 96372; 99283-25; J3301

== ENCOUNTER 2025-05-27 11:12 | Day surgery (SDC) | payer OTHER ==
[~2025-05-27] VITALS: Ht 162.6 cm; Wt 88.9 kg
[~2025-05-27 11:12] MED LIST changes: +FARXIGA5 MG PO; +TRIDERM28.4 GM TOP
[2025-05-27 14:18] VITALS: BP 111/71
== END 2025-05-27 14:00 | disposition home or self-care (01) ==
LOC: ORSCSDS 11:12
PROVIDERS: Internal Medicine Gastroenterology
PROC: 0DJ08ZZ Inspection of Upper Intestinal Tract, Via Natural or Artificial Opening Endoscopic (ICD-10-PCS; principal; 2025-05-27 12:45)
PROC: 0DBK8ZX Excision of Ascending Colon, Via Natural or Artificial Opening Endoscopic, Diagnostic (ICD-10-PCS; principal; 2025-05-27 12:45)
DX: D64.9 Anemia, unspecified (principal); D12.2 Benign neoplasm of ascending colon; K57.30 Diverticulosis of large intestine without perforation or abscess without bleeding; K62.7 Radiation proctitis; K62.5 Hemorrhage of anus and rectum; Z85.048 Personal history of other malignant neoplasm of rectum, rectosigmoid junction, and anus; Z85.71 Personal history of Hodgkin lymphoma; Z86.711 Personal history of pulmonary embolism; N18.4 Chronic kidney disease, stage 4 (severe); J44.9 Chronic obstructive pulmonary disease, unspecified; I50.9 Heart failure, unspecified; K21.9 Gastro-esophageal reflux disease without esophagitis; Z79.01 Long term (current) use of anticoagulants; Z79.899 Other long term (current) drug therapy
CPT/HCPCS: 88305; J2704; J7120